=== PATIENT | female | born 1985 | race Caucasian/White ===

== ENCOUNTER 2018-02-01 17:16 | Emergency (ER) | payer OTHER ==
[~2018-02-01] VITALS: Ht 170.2 cm; Wt 59.4 kg
[2018-02-01] MEDS ORDERED: SODIUM CHLORIDE 0.9% 1000ML 1,000 ML IV STA (17:44)
[2018-02-01 18:18] LABS: BILIRUBIN,URINE NEGATIVE (NEGATIVE); CLARITY,URINE CLEAR (CLEAR); COLOR,URINE YELLOW (YELLOW); KETONES,URINE NEGATIVE (NEGATIVE); LEUKOCYTE ESTERASE ,URINE 1+ (NEGATIVE); NITRITE,URINE NEGATIVE (NEGATIVE); PROTEIN,URINE DIPSTICK NEGATIVE (NEGATIVE); URINE UROBILINOGEN 0.2 mg/dL (0.2 - 1)
[2018-02-01 18:22] LABS: BASOPHILS # (AUTO) 0.1 (0.0-0.1); BASOPHILS % 0.4 % (0.0-1.0); EOSINOPHILS % 0.2 % (0.0-6.0); HEMATOCRIT 32.8 % (34.2-44.1); HEMOGLOBIN 10.1 g/dL (12.0-16.0); LYMPHOCYTES # (AUTO) 2.5 (1.0-3.2); LYMPHOCYTES % 22.5 % (18.0-39.1); MEAN CORPUSCULAR HEMOGLOBIN 26.7 pg (28-32); MEAN CORPUSCULAR HGB CONC 30.8 g/dL (31-35); MEAN CORPUSCULAR VOLUME 86.8 fL (81-99); MONOCYTES # (AUTO) 0.7 (0.2-0.8); MONOCYTES % 6.2 % (4.4-11.3); NEUTROPHILS # (AUTO) 7.9 (2.1-6.9); NEUTROPHILS % 70.2 % (38.7-80.0); PLATELET COUNT 368 x10e3/uL (140-360); RED BLOOD COUNT 3.78 x10e6/uL (3.6-5.1); RED CELL DISTRIBUTION WIDTH 19.9 % (11.7-14.4)
[2018-02-01 18:34] LABS: BACTERIA,URINE MANY /HPF; EPITHELIAL CELLS,URINE MODERATE /LPF
[2018-02-01 18:41] LABS: ANION GAP 13.2 mmol/L (8-16); BLOOD UREA NITROGEN 13 mg/dL (7-26); BUN/CREATININE RATIO 21 (6-25); CALCIUM 9.3 mg/dL (8.4-10.2); CARBON DIOXIDE 23 mmol/L (22-29); CHLORIDE 108 mmol/L (98-107); CREATININE, SERUM 0.63 mg/dL (0.57-1.11); EST GLOMERULAR FILTRATION RATE > 60 ML/MIN (60-); GLUCOSE 102 mg/dL (74-118); POTASSIUM 4.2 mmol/L (3.5-5.1); SODIUM 140 mmol/L (136-145)
[2018-02-01] MEDS ORDERED: CEFTRIAXONE SOD 1 GM VIAL IV ONE (19:00)
[2018-02-01] MEDS ORDERED: HYDROCODONE/APAP 5MG-325MG TAB PO ONE (19:00)
[2018-02-01] MEDS ORDERED: ONDANSETRON HCL 4 MG ORAL DISINTEGRATING TAB ONE (19:06)
[2018-02-01] MEDS ORDERED: ONDANSETRON HCL 4 MG ORAL DISINTEGRATING TAB PO STA (19:13)
[2018-02-01] MEDS ORDERED: ONDANSETRON HCL 4 MG ORAL DISINTEGRATING TAB SL NR (19:30)
== END 2018-02-01 19:42 | disposition home or self-care (01) ==
LOC: ER 17:16
DX: O26.892 Other specified pregnancy related conditions, second trimester (principal); O23.12 Infections of bladder in pregnancy, second trimester; R55 Syncope and collapse
CPT/HCPCS: 36415; 80048; 81001; 85025; 93005; 99284; J0696; J7030

== ENCOUNTER 2020-02-18 12:57 | Emergency (ER) | payer SELFPAY ==
[~2020-02-18] VITALS: Ht 170.2 cm; Wt 59.4 kg
--- OUTSIDE RECORDS SUMMARY | 2020-02-18 13:54 | XMS REPORT | Clinical Summary ---
Author Author [facility] Organization [facility] ict Address Unknown Phone Unavailable Care Team Providers Care Aircraft Magneto Mechanic Name Role Phone PCP Unavailable Allergies No Known Allergies Medications End Date Status Medication Sig Dispensed Refills Start Date Active PNV NO.115/IRON Take by 0 FUMARATE/FA ( mouth. #[id number] ACID OR) Active promethazine (PHENERGAN) Take 1 tablet 30 tablet 1 25 mg tabletIndications: by mouth 5 Encounter for supervision every 8 hours of other normal as needed for in third trimester Nausea or Vomiting. Active ferrous sulfate 325 mg Take 1 tablet 60 tablet 0 0 (65 mg iron) by mouth 6 tabletIndications: Single daily. delivery by Active norethindrone (NOR-QD) Take 1 tablet 28 Each 2 0 0.35 mg by mouth 6 tabletIndications: Single daily. delivery by Active omeprazole (PRILOSEC) 20 Take 1 14 capsule 0 1 mg delayed release capsule by 6 capsuleIndications: mouth daily. Gastroesophageal reflux disease, esophagitis presence not specified Active naproxen (NAPROSYN) 500 Take 1 tablet 60 tablet 0 201 mg tabletIndications: by mouth 2 7 Retained tampon, initial times daily encounter (with meals). Active acetaminophen-codeine Take 1 tablet 15 tablet 0 (TYLENOL/CODEINE #3) by mouth 7 300-30 mg per every 6 hours tabletIndications: as needed for Dentalgia Pain. Active triamcinolone acetonide by dental 5 g 1 (KENALOG) 0.1 % dental route 2 times 7 pasteIndications: daily. Dentalgia Active ibuprofen (MOTRIN) 800 mg Take 1 tablet 20 tablet 0 tabletIndications: by mouth 2 7 Dysuria times daily as needed for Pain. Active Problems Problem Noted Date Substance use disorder 10/20/2015 Cluster B personality disorder 10/20/2015 Depression during in third trimester 10/13 Overview: 10/13/2015 - Patient reports h/o "PSTD, anxiety, panic attacks, bipolar disorder, depression." Has not seen psy ch in this , declines to see them because she does not want to t nikos meds. Currently 38w6d. Patient tearful in clinic, and reports multiple crying episodes at home. Denies SI/HI/AVH. Discussed risk of post-partu m depression, will need to see psych post-. Referral to psych placed t elise. NEEDS TO BE SEEN BY PSYCH post- p case to discharge home Contraception management 09/27/2015 Overview: 09/27/2015 - desires BTL, will sign cons ents today. Patient understands that will likely not be able to have BTL at time of delivery as papers were not signed more than 30 days before due miguel e 10/13/2015 - did not sign consents last visit. Will sign today but unlikely to get BTL at C/S Irregular heartbeat 08/29/2015 Overview: 08/29/15: tachycardic to 110 in clinic today with irregular heartbeat palpated. Will obtain EKG 09/06/2015 No tachycardia, no irregular heartbeats, she states last time she was anxious but today she is not 09/27/2015 - no tachcardia, asymptomati c Asthma affecting , antepartum 07/18/2015 Overview: 07/18/2015: pt reports today that she smart s a history of asthma and has been on inhalers in the past and recently smart d an attack last week 08/01/2015: no new issues, PFTs sched ed on 08/0308/29/15: not using any inhalers, s/p P FTS on 08/03 with result: mild obstructive ventilatory defect with sig nificant reversibility to a single dose of inhaled bronchodilator; Oxygen saturation on room air is 98%. 09/06/2015 not using any inhalers 09/27/2015 - asymptomatic. Has not used inhalers in > 1 month per report 10/13/2015 - asymptomatic, not using inh christina Smoking 07/18/2015 Overview: 07/18/2015: discussed quitting 08/01/2015: reinforced quitting Pyelonephritis affecting 07/18/2015 Overview: 07/18/2015: was not treated for positive UCx collected 06/27/2015, now with bilateral CVA tenderness and hypotensio n, admitting to Antepartum 08/01/2015: patient left AMA, repeat UC x today, currently normotensive, no CVAT 08/29/15: repeat urine culture contamin ated, will repeat today. 09/06/2015 Urine culture + for Klebsiel la pneumoniae, will prescribe Keflex 500 mg q 12 hrs for 14 days 09/27/2015 - reports taking antibiotics. C/o bladder discomfort, +suprapubic tenderness, no CVAT , supervision of, high-risk 06/27/2015 Overview: Formatting of this note might be differ ent from the original. Estimated Date of Delivery: 10/21/15 by Marti MOREAU c/w 6w US Labs: Type/Scr RPR Rubella HBsAG HIV Sickle S cr Early H/H Early Plt UCx A+, Ab neg neg Non-imm neg neg 11.8/36 .6 359 Mixed uro-urogenital kahlil GC/Chl Pap Quad Scr 1 hr GTT 3rd RPR 3r d HIV 3rd H/H 3rd Plt GBS Neg/neg 132 pending pending 10.6/33.8 333 pos Ultrasound: Datinw US 29wk: EFW 1419g, 41st%ile, Placenta is anterior. There is no evidence of placenta previa,low-lying placenta, or morbidly adherent placenta. To Do: [ ] Dental referral made for checkup ( if pt has no dentist) [ - ] Influenza vaccine (during season) : declined [ - ] Quad Screen @ 15-22 weeks (Ideall y 16-18 weeks) -> presented to late to care [ x ] Glucola @ 24-28 weeks - ordered o n 07/18/2015; pt did not go, reordered 08/01/2015 [x ] TDap and RPR @ 28-32 weeks - orde red RPR, refused TDap [x ] 3rd Trimester HIV, CBC [ x]GBS - 09/27/2015 Unspecified chlamydial infection, in conditions class ified elsewhere and of 08/31/2011 unspecified site Overview: Formatting of this note might be differ ent from the original. 02/2015: repeat test negative 09/06/2015 Results for IVON CUI ( ) as of 09/06/2015 15:19 08/29/2015 15:15 CHLAMYDIA TRACH Negative N GONORRHOEAE Negative Previous section 08/30/2011 Overview: 06/27/2015: history of previous C/S x3 - desires repeat C/S #4. Plan for repeat C/S at ~39wks 10/13/2015 - scheduled for 10/18 (39w4d) History of mixed drug abuse 08/30/2011 Overview: Currently in treatment facility. 1st c hild adopted out to grandmother. 2nd child in temporary custody of its f ather. Post-op pain Urinary tract infection Abscess of face Drug ingestion Polysubstance abuse Family History Medical History Relation Name Comments Other Patient was adopted and sta temo doesn't know family HX. Relation Name Status Comments Daughter 1 from SIDS Son Alive x 2 Social History Date Tobacco Use Types Packs/Day Years Used Quit: 08/15/2011 Light Tobacco Smoker Cigarettes 1 Smokeless Tobacco: Former User Tobacco Cessation: Counseling Given: No Drinks/Week oz/Week Comments Alcohol Use No Food Insecurity Answer Date Recorded Within the past 12 months, you worried that your Never clive e 06/13/2017 food would run out before you got money to buy more. Within the past 12 months, the food you bought Never true 06/13/2017 just didn't last and you didn't have mo rory to get more. Sex Assigned at Date Recorded Not on file Industry Job Start Date Occupation Not on file Not on file Not on file Travel End Travel History Travel Start No recent travel history available. Last Filed Vital Signs Not on file Plan of Treatment Health Maintenance Due Date Last Done Comments Cervical Cancer Scrn (3 01/03/2018 01/03/2015 (Pr eviously completed - Yrs) External) Results Not on fileafter 02/17/2019 Insurance Type Payer Benefit Subscriber ID Effective Phone Address Plan / Dates Group [facility] SELF-PAY SELF-PAY xxxxxxxxx [id number] [place] [address] Ivon Cui Verenice Foss [facility] [address] [place] [address] Becca Cuijonatan Foss [facility] [address] [place] [address] Becca Cuijonatan Caldera Personal/F [facility] [address] [place] [address] Advance Directives Date Inactivated Comments Code Status Date Activated 10/21/2015 1:52 PM Full Code 10/18/2015 6:06 PM 07/19/2015 6:13 AM Full Code 07/18/2015 2:15 PM
[2020-02-18 14:34] VITALS: BP 109/70
--- NOTE | 2020-02-18 14:34 | Emergency Department Note ---
History of Present Illnes History of Present Illness Chief Complaint: General Medicine Complaints History of Present Illness This is a 34 year old female arrives to the ED requesting heroine detox. Patient denies any nausea or vomiting, headaches, abdominal pain, fever or chills. Chief Complaint Comment NO HERION X LAST 2 DAYS AND CALLED EMS D/T WITHDRAWAL. PT STATES SHE CANT LIVE AT A REHAB. PT CALLED 911 AND THEN DIDNT WANT TO GO, BUT EMS STATES THEY ENCOURAGED PT TO COME TO BE SEEN. PT STATES SHE'S BEEN USING AGAIN SINCE HER BABY FROM SIDS 5 MONTHS AGO. PT STATES SHE HAS 7 CHILDREN AND CUSTODY OF NONE. PT STATES SHE CANT TAKE SUBOXONE AND CANT TAKE METHODONE. Historian: Patient, Equity Research Analyst/EMS Arrival Mode: [facility] Treatment SCIENTIFIC MANAGER: See EMS Report Medical Associate Required: Yes Onset (how long ago): day(s) Severity: mild Duration (how long): day(s) Chronicity: chronic Relieving factors: none Past Medical/Family History Physician Review I have reviewed the patient's past medical and family history. Any updates have been documented here. Past Medical History Recent Fever: No Clinical Suspicion of Infectio: No New/Unexplained Change in Ment: No Past Medical History: UTI's Other Surgery: X4 Social History Smoking Cessation: Current some day smoker Counseling Performed: No Alcohol Use: Occasional Any Illegal Drug Use: Yes (heroin ) TB Exposure/Symptoms: No Physically hurt or threatened: No Other Last Tetanus: UTD Any Pre-Existing Lines (PICC,: No Is patient up to date on immun: Yes Last Flu: NOT UTD Last Pneumovax: N/A Review of Systems Review of Systems Constitutional: no symptoms EENTM: no symptoms Cardiovascular: no symptoms Respiratory: no symptoms Gastrointestinal: no symptoms Genitourinary: no symptoms Musculoskeletal: no symptoms Neurological: no symptoms Psychological: no symptoms Endocrine: no symptoms Hematological/Lymphatic: no symptoms Review of other systems All other systems reviewed and negative. Physical Exam Related Data Allergies: Coded Allergies: No Known Allergies (Unverified , 05/13/17) Triage Vital Signs Vital Signs Date Time Temp Pulse Resp B/P (MAP) Pulse Ox O2 Delivery O2 Flow Rate FiO2 02/18/20 12:58 98.6 78 18 141/93 99 Physical Exam CONSTITUTIONAL Constitutional: well-developed, well-nourished HENT HENT: normocephalic, atraumatic, oropharynx clear/moist, nose normal, dental caries; dentition normal HENT L/R: left ext ear normal, right ext ear normal EYES Eyes: PERRL, conjunctivae normal NECK Neck: ROM normal PULMONARY Pulmonary: effort normal, breath sounds normal CARDIOVASCULAR Cardiovascular: regular rhythm, heart sounds normal, capillary refill normal, normal rate GASTROINTESTINAL Abdominal: soft, nontender, bowel sounds normal GENITOURINARY Genitourinary: exam deferred SKIN Skin: warm, dry MUSCULOSKELETAL Musculoskeletal: ROM normal NEUROLOGICAL Neurological: alert, oriented x 3, no gross motor or sensory deficits PSYCHOLOGICAL Psychological: mood/affect normal, judgement normal Critical Care Time Subsequent provider I assumed direction of critical care for this patient from another provider of my specialty. Assessment & Plan Assessment & Plan Final Impression: (1) DRUG ABUSE COUNSELING AND SURVEILLANCE OF DRUG ABUSER Assessment & Plan Patient hemodynamically stable, normal vital signs, normal mentation awake alert oriented to person place and time Patient due to his steady gait Patient did not want blood work, imaging or fluids in the emergency department and states she just wants to go home and follow-up as an outpatient Last Vital Signs Date Time Temp Pulse Resp B/P (MAP) Pulse Ox O2 Delivery O2 Flow Rate FiO2 02/18/20 13:49 66 18 112/75 100 02/18/20 12:58 98.6 MARIA ESTHER RUIZ DO Feb 18, 2020 14:34
--- NOTE | 2020-02-18 14:38 | NUR ---
Patient left without getting discharge paperwork, she was not in the room when I went to discharge her.
== END 2020-02-18 14:39 | disposition home or self-care (01) ==
LOC: ER 13:47
DX: Z71.51 Drug abuse counseling and surveillance of drug abuser (principal)
CPT/HCPCS: 99283